=== PATIENT | male | born 1960 | race African-American/Black ===

== ENCOUNTER 2019-04-11 20:22 | Emergency (ER) | payer OTHER ==
[~2019-04-11] VITALS: Ht 190.5 cm; Wt 88.5 kg
[2019-04-11 20:27] VITALS: Ht 190.5 cm; Wt 88.5 kg
[2019-04-11 22:27] VITALS: BP 142/99
== END 2019-04-11 22:27 | disposition home or self-care (01) ==
LOC: ED 20:22
DX: T78.49XA Other allergy, initial encounter (principal); L29.9 Pruritus, unspecified; I10 Essential (primary) hypertension; Z91.011 Allergy to milk products; Z91.010 Allergy to peanuts; X58.XXXA Exposure to other specified factors, initial encounter
CPT/HCPCS: J1100; J3490; J7030